=== PATIENT | male | born 1930 | race Caucasian/White ===

== ENCOUNTER 2018-10-08 13:12 | Observation (INO) ==
[2018-10-08] MEDS ORDERED: 0.9 % Sodium Chloride 1,000 ML ONE (13:17)
[2018-10-08] MEDS ORDERED: *HR* Dextrose 50 % in Water (Vial) 50 ML VIAL ONE ×2 (13:18→20:06)
--- NOTE | 2018-10-08 13:31 | Emergency Department Note ---
Disposition Clinical Impression: Atrial fibrillation with RVR, Hypoglycemia, Elevated troponin Disposition: Admitted As Inpatient General Adult HPI - General Chief complaint: ED Weakness Stated complaint: lethargic Time Seen by Provider: 10/08/18 13:12 Source: family, EMS Mode of arrival: EMS Limitations: altered mental status Nursing Notes Reviewed: Yes Vital Signs Reviewed: Yes - History of Present Illness HPI Narrative: Patient was the doctor's office when out to his car reportedly collapsed onto his knees. He is very weak squad was called her blood sugar was found to be 50. The squad was apparently called last night for low blood sugar and he refused to come in. Here in the emergency department the patient's blood sugar is 29 Onset (ago): Just [employer] Location: other Radiation: distal (Generalized) Pain Scale: 0 Consistency: constant Improves with: nothing Worsens with: nothing Associated symptoms: Reports: denies other symptoms - Related Data Previous Rx's Medication Instructions Recorded Sulfamethoxazole/Trimeth DS 1 each PO BID #10 tablet 10/01/18 [Bactrim DS] Allergies Allergy/AdvReac Type Severity Reaction Status Date / Time No Known Allergies Allergy Verified 10/01/18 20:47 All systems ED: reviewed and negative except as stated. Review of Systems: As Per HPI Constitutional: Denies: fever, chills, weakness, weight change Eyes: Denies: eye pain, eye discharge, vision change ENT ED: Denies: ear pain, throat pain, dental pain, hearing loss, epistaxis, congestion, dysphagia Cardiovascular: Denies: chest pain, palpitations, dyspnea on exertion, edema, syncope Respiratory: Denies: cough, dyspnea, wheezes, hemoptysis, stridor Gastrointestinal: Denies: abdominal pain, nausea, vomiting, diarrhea, constipation, hematemesis, melena, hematochezia Genitourinary: Denies: urgency, dysuria, frequency, hematuria Musculoskeletal: Denies: back pain, neck pain, arthralgia, myalgia Integumentary: Denies: rash, abrasion, lesions Neurological: Denies: headache, weakness, numbness, paresthesias, confusion, abnormal gait, vertigo Psychiatric: Denies: anxiety, depression, suicidal thoughts, homicidal thoughts, auditory hallucinations, visual hallucinations Endocrine: Denies: fatigue Hematological/Lymphatic: Denies: easy bleeding, easy bruising Allergic/Immunologic: Denies: facial swelling, urticaria Past Medical History - Past Medical History Attestation: Yes The following information was validated with the patient. Source: patient, nursing notes reviewed Medical history: Reports: atrial fibrillation, coronary artery disease, diabetes, hyperlipidemia, hypertension Surgical history: Reports: angioplasty/stent Psychiatric history: Reports: no psych history - Social History Smoking Status: Never smoker Smokeless Tobacco Status: No Alcohol use: Reports: none Drug use: Reports: none Physical Exam - General Limitations: altered mental status General appearance: lethargic - Head Head exam: atraumatic, normocephalic, normal inspection - Eye Eye exam: Present: normal appearance, PERRL, EOMI - ENT ENT exam: normal exam, normal oropharynx, mucous membranes moist - Neck Neck exam: Present: normal inspection, full ROM, trachea midline - Chest Chest inspection: Present: normal inspection, symmetric chest wall rise - Respiratory Respiratory exam: Present: normal lung sounds bilaterally - Cardiovascular Cardiovascular exam: Present: tachycardia, irregular rhythm, normal heart sounds - Abdominal Exam Abdominal exam: Present: soft, Non-Tender. Absent: tenderness, distention, guarding, rebound, rigidity - Extremities Exam Extremities exam: Present: normal inspection, full ROM. Absent: tenderness, pedal edema - Back Exam Back exam: Present: normal inspection, full ROM. Absent: tenderness - Neurological Exam Neurological exam: Present: other (Initially lethargic. After an amp of D50 patient is awake alert and oriented) - Psychiatric Psychiatric exam: Present: normal affect, normal mood - Skin Skin exam: Present: warm, dry, intact, normal color Course Vital Signs Temperature 99.3 F 10/08/18 13:13 Pulse Rate 124 10/08/18 13:13 Respiratory Rate 24 10/08/18 13:13 Blood Pressure 137/112 10/08/18 13:13 O2 Sat by Pulse Oximetry 86 10/08/18 13:13 Temperature 99.5 F 10/08/18 16:30 Pulse Rate 110 10/08/18 17:15 Respiratory Rate 16 10/08/18 17:15 Blood Pressure 136/61 10/08/18 17:15 O2 Sat by Pulse Oximetry 98 10/08/18 17:15 Oxygen Delivery Oxygen Delivery Room Air Medical Decision Making - MDM Narrative Medical decision making narrative: I Reviewed the patient's medication list Patient had a second episode of hypoglycemia here in the ER approximately an hour after he was checked and has blood sugar of 93 and it dropped to 30 once again he was given additional amp of D50 and perked up and was admitted to the floor in the care of Dr. Ji after discussion with him. - Lab Data Lab results reviewed: Yes I reviewed the patient's lab results. Result diagrams: 10/08/18 13:52 10/08/18 13:52 Lab Results 10/08/18 10/08/18 10/08/18 Range/Units 13:52 13:52 13:52 WBC 8.5 (4.3-11.1) K/mcL RBC 3.78 L (4.19-5.50) M/mcL Hgb 11.6 L (12.9-16.9) g/dL Hct 34.3 L (37.5-50.1) % MCV 90.7 (83.0-100.0) fL MCH 30.7 (28.0-33.3) pg MCHC 33.8 (31.6-35.5) g/dL RDW 14.1 (11.5-14.5) % Plt Count 233 (140-400) K/mcL MPV 9.6 (9.4-12.4) fL Immature Gran % 1.3 (0-4) % Seg Neutrophils % 79.0 % Lymphocytes % 11.4 % Monocytes % 7.4 % Eosinophils % 0.8 % Basophils % 0.1 % Neutrophils # 6.7 (1.6-8.9) K/mcL Lymphocytes # 1.0 (0.6-4.6) K/mcL Monocytes # 0.6 (0.0-1.3) K/mcL Eosinophils # 0.1 (0.0-0.6) K/mcL Basophils # 0.0 (0.0-0.2) K/mcL Sodium 127 L (136-145) mEq/L Potassium 4.1 (3.5-5.1) mEq/L Chloride 92 L (98-107) mEq/L Carbon Dioxide 24 (23-29) mEq/L BUN 26 H (8-23) mg/dL Creatinine 1.38 H (0.70-1.30) mg/dL Est GFR ( Amer) 59 L (> 60) Est GFR (Non-Af Amer) 49 L (> 60) BUN/Creatinine Ratio 19 (6-26) Glucose 124 H (70-105) mg/dL Calculated Osmolality 270 L (280-300) Lactic Acid 2.7 H (0.5-2.2) mmol/L Calcium 8.3 L (8.6-10.3) mg/dL Total Bilirubin 0.4 (0.3-1.0) mg/dL AST 45 H (13-39) Units/L ALT 30 (7-52) Units/L Alkaline Phosphatase 65 (34-104) Units/L Troponin I 0.04 H* (< 0.04) ng/mL Serum Total Protein 7.2 (6.4-8.9) g/dL Albumin 3.9 (3.5-5.7) g/dL Globulin 3.3 (2.4-3.5) g/dL Albumin/Globulin Ratio 1.2 (1.1-2.2) 10/08/18 10/08/18 Range/Units 15:59 15:59 WBC (4.3-11.1) K/mcL RBC (4.19-5.50) M/mcL Hgb (12.9-16.9) g/dL Hct (37.5-50.1) % MCV (83.0-100.0) fL MCH (28.0-33.3) pg MCHC (31.6-35.5) g/dL RDW (11.5-14.5) % Plt Count (140-400) K/mcL MPV (9.4-12.4) fL Immature Gran % (0-4) % Seg Neutrophils % % Lymphocytes % % Monocytes % % Eosinophils % % Basophils % % Neutrophils # (1.6-8.9) K/mcL Lymphocytes # (0.6-4.6) K/mcL Monocytes # (0.0-1.3) K/mcL Eosinophils # (0.0-0.6) K/mcL Basophils # (0.0-0.2) K/mcL Sodium (136-145) mEq/L Potassium (3.5-5.1) mEq/L Chloride (98-107) mEq/L Carbon Dioxide (23-29) mEq/L BUN (8-23) mg/dL Creatinine (0.70-1.30) mg/dL Est GFR ( Amer) (> 60) Est GFR (Non-Af Amer) (> 60) BUN/Creatinine Ratio (6-26) Glucose (70-105) mg/dL Calculated Osmolality (280-300) Lactic Acid 2.6 H (0.5-2.2) mmol/L Calcium (8.6-10.3) mg/dL Total Bilirubin (0.3-1.0) mg/dL AST (13-39) Units/L ALT (7-52) Units/L Alkaline Phosphatase (34-104) Units/L Troponin I 0.03 (< 0.04) ng/mL Serum Total Protein (6.4-8.9) g/dL Albumin (3.5-5.7) g/dL Globulin (2.4-3.5) g/dL Albumin/Globulin Ratio (1.1-2.2) - Radiology Data Radiology results reviewed: Yes I reviewed the patient's radiology results. - EKG Data EKG #2 EKG attestation: Yes I reviewed and interpreted this EKG. EKG results narrative: EKG shows A. fib with RVR with rate of 127 bpm. R -R intervals 472 ms samaritan 88 ms. 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 Possible left ventricular hypertrophy. No acute elevation of the ST segments is noted EKG #2 shows atrial fibrillation with controlled rate of 98 bpm R R interval 112 ms QRS duration 89 ms QT interval 308 ms QTC 394 ms R axis -[address] elevation Critical Care Time Critical Care Time: Yes Attestation: 60 minutes of care time is assessed the patient was high probability of clinically life-threatening significant deterioration patient condition which required urgent intervention including IV glucose for hypoglycemia and IV Cardizem for tachycardia
[2018-10-08] MEDS ORDERED: 0.9 % Sodium Chloride 1,000 ML IVC SCH (13:45)
[2018-10-08 14:03] LABS: Basophils % 0.1 %; Eosinophils # 0.1 K/mcL (0.0-0.6); Eosinophils % 0.8 %; Hematocrit 34.3 % (37.5-50.1); Hemoglobin 11.6 g/dL (12.9-16.9); Immature Granulocytes % 1.3 % (0-4); Lymphocytes % 11.4 %; Mean Corpuscular HGB Conc 33.8 g/dL (31.6-35.5); Mean Corpuscular Hemoglobin 30.7 pg (28.0-33.3); Mean Corpuscular Volume 90.7 fL (83.0-100.0); Mean Platelet Volume 9.6 fL (9.4-12.4); Monocytes # 0.6 K/mcL (0.0-1.3); Monocytes % 7.4 %; Neutrophils # 6.7 K/mcL (1.6-8.9); Platelet Count 233 K/mcL (140-400); Red Blood Count 3.78 M/mcL (4.19-5.50); Red Cell Distribution Width 14.1 % (11.5-14.5)
[2018-10-08 14:27] LABS: Albumin 3.9 g/dL (3.5-5.7); Albumin/Globulin Ratio 1.2 (1.1-2.2); Bilirubin,Total 0.4 mg/dL (0.3-1.0); Calcium 8.3 mg/dL (8.6-10.3); Globulin 3.3 g/dL (2.4-3.5); Potassium 4.1 mEq/L (3.5-5.1); Total Protein 7.2 g/dL (6.4-8.9); Troponin I 0.04 ng/mL (< 0.04)
[2018-10-08] MEDS ORDERED: *HR* Dextrose 50 % in Water (Syg) 50 ML SYRINGE IVP ONE (17:09)
[2018-10-08] MEDS ORDERED: Naloxone 0.4 MG/ML INJ IVP PRN (17:59)
[2018-10-08] MEDS ORDERED: D5% in 0.9% NACL 1,000 ML IVC SCH (18:00)
[2018-10-08] MEDS: D5% in 0.9% NACL 1,000 ML IVC SCH (18:45)
[2018-10-08] MEDS ORDERED: *HR* Dextrose 50 % in Water (Vial) 50 ML VIAL IVP ONE (20:01)
[2018-10-08] MEDS: Sulfamethoxazole/Trimeth DS 1 EACH TABLET PO SCH (20:18)
[2018-10-08 23:26] LABS: Bilirubin,Urine Negative (Negative); Blood,Urine Negative (Negative); Clarity,Urine Clear (Clear); Color,Urine Yellow (Yellow); Glucose,Urine (UA) 100 mg/dL (Normal); Ketones,Urine Negative (Negative); Leukocyte Esterase,Urine Negative (Negative); Nitrite,Urine Negative (Negative); Protein,Urine 30 mg/dL (Neg-Trace); Specific Gravity,Urine 1.015 (1.010-1.025); Urobilinogen,Urine Normal (Normal)
[2018-10-08 23:39] LABS: Mucus,Urine Few (Few)
[2018-10-09] MEDS ORDERED: D5% in Water 1,000 ML IVC PRN (01:43)
[2018-10-09] MEDS ORDERED: Dextrose Gel 15 GM/37.5 ML TUBE PO PRN ×2 (01:43)
[2018-10-09] MEDS ORDERED: *HR* Dextrose 50 % in Water (Syg) 50 ML SYRINGE IVP PRN (01:43)
[2018-10-09] MEDS ORDERED: *HR* Dextrose 50 % in Water (Vial) 50 ML VIAL IVP PRN (02:00)
[2018-10-09] MEDS: D10% in Water 500 ML IVC SCH ×3 (02:07→14:27)
[2018-10-09] MEDS: D5% in 0.9% NACL 1,000 ML IVC SCH (03:45)
[2018-10-09 05:18] LABS: Basophils % 0.1 %; Eosinophils # 0.1 K/mcL (0.0-0.6); Eosinophils % 1.5 %; Hemoglobin 11.1 g/dL (12.9-16.9); Immature Granulocytes % 0.5 % (0-4); Lymphocytes # 1.2 K/mcL (0.6-4.6); Lymphocytes % 14.3 %; Mean Corpuscular HGB Conc 33.6 g/dL (31.6-35.5); Mean Corpuscular Hemoglobin 30.4 pg (28.0-33.3); Mean Corpuscular Volume 90.4 fL (83.0-100.0); Mean Platelet Volume 9.9 fL (9.4-12.4); Monocytes # 0.3 K/mcL (0.0-1.3); Monocytes % 3.7 %; Neutrophils # 6.4 K/mcL (1.6-8.9); Platelet Count 217 K/mcL (140-400); Red Blood Count 3.65 M/mcL (4.19-5.50); Segmented Neutrophils % 79.9 %
[2018-10-09 05:45] LABS: Alanine Aminotransferase 31 Units/L (7-52); Albumin 3.6 g/dL (3.5-5.7); Albumin/Globulin Ratio 1.2 (1.1-2.2); Alkaline Phosphatase 56 Units/L (34-104); Aspartate Amino Transferase 46 Units/L (13-39); BUN/Creatinine Ratio 16 (6-26); Bilirubin,Total 0.6 mg/dL (0.3-1.0); Blood Urea Nitrogen 18 mg/dL (8-23); Calcium 8.1 mg/dL (8.6-10.3); Carbon Dioxide 24 mEq/L (23-29); Chloride 96 mEq/L (98-107); Globulin 2.9 g/dL (2.4-3.5); Glucose 74 mg/dL (70-105); Osmolality,Calculated 269 (280-300); Potassium 3.8 mEq/L (3.5-5.1); Sodium 129 mEq/L (136-145); Total Protein 6.5 g/dL (6.4-8.9); eGFR For Non-African Americans > 60 (> 60)
[2018-10-09 05:46] LABS: BUN/Creatinine Ratio 16 (6-26); Blood Urea Nitrogen 18 mg/dL (8-23); Calcium 8.1 mg/dL (8.6-10.3); Carbon Dioxide 23 mEq/L (23-29); Chloride 97 mEq/L (98-107); Glucose 76 mg/dL (70-105); Osmolality,Calculated 269 (280-300); Potassium 3.9 mEq/L (3.5-5.1); Sodium 129 mEq/L (136-145); eGFR For Non-African Americans > 60 (> 60)
[2018-10-09 08:49] LABS: % Iron Saturation 9 % (20-55); Iron 31 mcg/dL (65-175); Transferrin 243 mg/dL (203-362)
[2018-10-09 09:06] LABS: Ferritin 306 ng/mL (20-250)
[2018-10-09 09:14] LABS: Folate > 22.3 ng/mL (3.0-16.0); Vitamin B12 107 pg/mL (250-1100)
[2018-10-09] MEDS: Sulfamethoxazole/Trimeth DS 1 EACH TABLET PO SCH (09:49)
[2018-10-09] MEDS ORDERED: Cyanocobalamin (B-12) 1,000 MCG/ML VIAL IM ONE (11:38)
--- NOTE | 2018-10-09 11:48 | Internal Med History&Physical ---
Date of Encounter: 10/09/18 Time of Encounter: 11:05 Assessment and Plan (1) Atrial fibrillation with RVR Current visit: Yes Status: Acute Chronic AF. He was given a dose of Cardizem in emergency room. Lanoxin level will be checked. IV fluids were ordered. (2) Acute kidney injury Current visit: Yes Status: Acute BUN and creatinine elevated at 26 and 1.3 respectively in emergency room. These are now decreased 18 and 1.11 respectively. Continue to monitor. (3) Anemia, B12 deficiency Current visit: Yes Status: Acute B12 level low at 107. He will be given B12 injection and start oral B12 supplement. Qualifiers: Vitamin B12 deficiency anemia type: unspecified B12 deficiency Qualified Code(s): D51.9 - Vitamin B12 deficiency anemia, unspecified (4) Iron deficiency anemia Current visit: Yes Status: Acute Suspect due in part to aspirin use. Oral ferrous sulfate with ascorbic acid will be started. Qualifiers: Iron deficiency anemia type: unspecified iron deficiency Qualified Code(s): D50.9 - Iron deficiency anemia, unspecified (5) Drug rash Current visit: Yes Status: Acute Septra will be discontinued. He will be given Benadryl and prednisone. (6) Dementia Current visit: Yes Status: Acute MMSE will be done. Qualifiers: Dementia type: unspecified type Dementia behavioral disturbance: without behavioral disturbance Qualified Code(s): F03.90 - Unspecified dementia without behavioral disturbance (7) Weakness Current visit: Yes Status: Acute He will have physical therapy and occupational therapy evaluation. (8) Hypoglycemia Current visit: Yes Status: Acute Family reports glimepiride was discontinued yesterday. Hypoglycemia has improved with IV dextrose infusion. Continue to monitor glucose. Hemoglobin A1c has been ordered. Internal Medicine - H&P: HPI Chief complaint: AF with RVR, weakness, hypoglycemia Admitted From: Emergency Dept Plans for Post Hospital Care: Home History of present illness: Mr. Shannon is a 88 year old male who came to emergency room after leaving an office visit with his PCP because he became extremely weak. Family required EMS personnel to help load him into the car. He was brought to emergency room and evaluated and found to have AF with RVR and hypoglycemia. He was admitted to [facility] floor for ongoing care needs. He has chronic atrial fibrillation. He uses aspirin for CVA prophylaxis instead of OAC. He has history of hypertension. There is no known OK DVT or pulmonary embolus. An echocardiogram May 2014 showed LVEF of 65%. There was mild diastolic dysfunction reported. Estimated RVSP was 45 mmHg. There was mild to moderate pulmonary regurgitation, moderate aortic valve calcification, and trace aortic regurgitation. Endocrine history is significant for being diagnosed with DM 2 approximately age 64. He has hyperlipidemia and hypothyroidism. His oral food intake has decreased the past few days. Family attributes this to use of an antibiotic given him for pain/infection in his right knee. Past Med Surg Social Fam HX - Past Medical History Medical history: atrial fibrillation, coronary artery disease, diabetes, hyperlipidemia, hypertension Psychiatric history: no psych history - Past Surgical History Surgical History: angioplasty/stent Additional surgical history: coronary stent - Social History Smoking Status: Never smoker Smokeless Tobacco Status: No Alcohol use: none Drug use: none Internal Medicine - H&P: Meds Sulfamethoxazole/Trimeth DS [Bactrim DS] 1 each PO BID #10 tablet 10/01/18 [Rx] Allergy/AdvReac Type Severity Reaction Status Date / Time No Known Allergies Allergy Verified 10/01/18 20:47 All Systems PM: A 10-system review of systems was performed and is negative for pertinent findings except as documented above in the HPI. Review of systems: Review of systems is obtained from family since patient has significant dementia. Gen.: His weight has increased from 74.843 kg October 2014 to 83.915 kg at present. Cardiovascular: As per history of present illness Respiratory: He smoked for approximately 4 years in early adulthood but has no known chronic lung disease and does not use home oxygen. GI: There is no known disorders of liver gallbladder or exocrine pancreas : He has BPH but no other kidney bladder prostate disorders Neurologic: There is no history of large distribution strokes or seizures. He has dementia with MMSE May 2014 showing a score of 22/30. Endocrine: As per history of present illness Hematology/oncology: He has anemia. There is no known internal malignancies or other blood disorders. Psychiatric: No history of anxiety depression or other mental health issues [place] skeletal: He developed pain in his right knee approximately 1 week ago. He was evaluated at a local urgent care and directed to [facility] emergency room. He was placed on antibiotics for diagnosis of cellulitis. Knee x-ray showed soft tissue swelling and small joint effusion without acute osseous abnormality. No joint aspiration was attempted. He saw an orthopedist the following day who continued the antibiotics. Another follow-up appointment on 10/06/2018 with the orthopedist resulted in no additional workup or treatment. He has no significant DJD, gout, or other bone joint or muscle disorders. - Constitutional Vitals: Temp Pulse Resp BP Pulse Ox 98.0 F 111 28 122/62 95 10/09/18 10:23 10/09/18 10:23 10/09/18 10:23 10/09/18 10:23 10/09/18 10:23 Exam: Gen.: He is a well-developed well-nourished male lying in bed who appears in no acute distress HEENT: Head is atraumatic and normocephalic. Eyes: EOMI. There is no scleral icterus. Mouth: Mucosa is moist. Neck: Supple and nontender. There is no thyromegaly or adenopathy noted. Heart: Irregularly irregular with rate approximately 112/m. Lungs: No wheezes or crackles are heard. Abdomen: Soft and nontender. No masses or guarding are noted. Extremities: There is no cyanosis edema or clubbing noted. Dorsalis pedis and posttibial pulses are trace to 1+ palpable bilaterally. Neurologic: Mental status: He is able to answer a few questions but is not conversational. Cranial nerves: Smile is symmetric. Forehead wrinkles bilaterally. Tongue protrudes midline. EOMI. Motor: There is no pronator drift. Cerebellar: Finger to nose is intact bilaterally. Skin: Warm and dry. He has diffuse macular rash involving large portion of his upper legs, torso, and arms consistent with allergic drug reaction. Internal Med - H&P Results - Labs CBC & Chem 7: 10/09/18 04:33 10/09/18 04:33 Labs: Short CBC 10/08/18 10/09/18 Range/Units 13:52 04:33 WBC 8.5 8.0 (4.3-11.1) K/mcL Hgb 11.6 L 11.1 L (12.9-16.9) g/dL Hct 34.3 L 33.0 L (37.5-50.1) % Plt Count 233 217 (140-400) K/mcL Neutrophils # 6.7 6.4 (1.6-8.9) K/mcL BMP 10/08/18 10/09/1810/09/19 13:52 04:33 04:33 Sodium 127 L 129 L 129 L Potassium 4.1 3.9 3.8 Chloride 92 L 97 L 96 L Carbon Dioxide 24 23 24 BUN 26 H 18 18 Creatinine 1.38 H 1.12 1.11 Glucose 124 H 76 74 Calcium 8.3 L 8.1 L 8.1 L Cardiac Enzymes 10/08/18 10/08/18 10/08/18 Range/Units 13:52 15:59 22:02 Troponin I 0.04 H* 0.03 0.04 H* (< 0.04) ng/mL 10/09/18 Range/Units 04:33 Troponin I 0.04 H* (< 0.04) ng/mL Liver Function 10/08/18 10/09/18 Range/Units 13:52 04:33 Total Bilirubin 0.4 0.6 (0.3-1.0) mg/dL AST 45 H 46 H (13-39) Units/L ALT 30 31 (7-52) Units/L Alkaline Phosphatase 65 56 (34-104) Units/L Albumin 3.9 3.6 (3.5-5.7) g/dL Urine 10/08/18 Range/Units 23:14 Urine Color Yellow (Yellow) Urine Clarity Clear (Clear) Urine pH 5.0 (5.0-8.0) pH Units Ur Specific [place] 1.015 (1.010-1.025) Urine Protein 30 H (Neg-Trace) mg/dL Urine Glucose (UA) 100 H (Normal) mg/dL - Impressions ITS Impressions Chest X-Ray 10/08/18 13:35 IMPRESSION: Suboptimal inspiration-no definite acute pulmonary finding. Stable mild cardiomegaly. D/ / Ignacio Phillips MD / Ignacio Phillips MD Interpreting Provider: Ignacio Phillips MD
[2018-10-09] MEDS: predniSONE 20 MG TABLET PO SCH ×2 (14:18→17:34)
[2018-10-09] MEDS ORDERED: Acetaminophen 325 MG TABLET PO PRN (14:53)
[2018-10-09] MEDS ORDERED: Acetaminophen 325 MG TABLET PO SCH (16:00)
[2018-10-09 17:39] LABS: Estimated Average Glucose 166 mg/dl; Hemoglobin A1C 7.4 %
--- NOTE | 2018-10-09 20:29 | Electrocardiograph Report ---
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
--- NOTE | 2018-10-09 20:38 | Electrocardiograph Report ---
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
[2018-10-10 06:07] LABS: Basophils % 0.3 %; Eosinophils % 0.1 %; Hemoglobin 11.6 g/dL (12.9-16.9); Immature Granulocytes % 0.4 % (0-4); Lymphocytes # 1.2 K/mcL (0.6-4.6); Lymphocytes % 16.8 %; Mean Corpuscular HGB Conc 33.1 g/dL (31.6-35.5); Mean Corpuscular Hemoglobin 29.8 pg (28.0-33.3); Mean Platelet Volume 10.5 fL (9.4-12.4); Monocytes # 0.2 K/mcL (0.0-1.3); Monocytes % 2.8 %; Neutrophils # 5.7 K/mcL (1.6-8.9); Platelet Count 213 K/mcL (140-400); Red Blood Count 3.89 M/mcL (4.19-5.50); Red Cell Distribution Width 14.2 % (11.5-14.5); Segmented Neutrophils % 79.6 %
[2018-10-10] MEDS ORDERED: Ascorbic Acid 500 MG TABLET PO SCH (06:30)
[2018-10-10 06:37] LABS: BUN/Creatinine Ratio 26 (6-26); Blood Urea Nitrogen 29 mg/dL (8-23); Calcium 8.6 mg/dL (8.6-10.3); Carbon Dioxide 15 mEq/L (23-29); Chloride 99 mEq/L (98-107); Glucose 455 mg/dL (70-105); Osmolality,Calculated 294 (280-300); Potassium 4.7 mEq/L (3.5-5.1); Sodium 129 mEq/L (136-145); eGFR For Non-African Americans > 60 (> 60)
[2018-10-10 06:56] LABS: Platelet Estimate Normal (Normal)
[2018-10-10] MEDS ORDERED: *HR* Glimepiride 2 MG TABLET PO SCH (08:00)
[2018-10-10] MEDS ORDERED: Cyanocobalamin (B-12) 1,000 MCG TABLET PO SCH (09:00)
[2018-10-10] MEDS: predniSONE 20 MG TABLET PO SCH (09:32)
[2018-10-10 10:36] VITALS: BP 132/85
[2018-10-10] MEDS ORDERED: Insulin LISPRO 300 UNITS/3 ML VIAL SQ ONE (11:58)
--- NOTE | 2018-10-10 12:06 | Discharge Summary ---
Orders not resulted at time of discharge: Pending orders 10/09/18 14:59 Culture,Blood [BC] Stat Date of Encounter: 10/10/18 Time of Encounter: 11:20 - Discharge Diagnosis (1) Atrial fibrillation with RVR Priority: Primary Status: Acute (2) Acute kidney injury Priority: Secondary Status: Resolved (3) Anemia, B12 deficiency Priority: Secondary Status: Acute Qualifiers: Vitamin B12 deficiency anemia type: unspecified B12 deficiency Qualified Code(s): D51.9 - Vitamin B12 deficiency anemia, unspecified (4) Iron deficiency anemia Priority: Secondary Status: Acute Qualifiers: Iron deficiency anemia type: unspecified iron deficiency Qualified Code(s): D50.9 - Iron deficiency anemia, unspecified (5) Drug rash Priority: Secondary Status: Acute (6) Dementia Priority: Secondary Status: Chronic Qualifiers: Dementia type: unspecified type Dementia behavioral disturbance: without behavioral disturbance Qualified Code(s): F03.90 - Unspecified dementia without behavioral disturbance (7) Weakness Priority: Secondary Status: Chronic (8) Hypoglycemia Priority: Secondary Status: Resolved Hospital course: Mr. Shannon is a 88 year old male who came to emergency room after leaving an office visit with his PCP because he became extremely weak. Family required EMS personnel to help load him into the car. He was brought to emergency room and evaluated and found to have AF with RVR and hypoglycemia. He was admitted to [facility] for ongoing care needs. Initial orders were written by the emergency room physician. I saw him on October 09 and performed a history and physical. A dose of Cardizem was given in emergency room. IV fluids were started and his ventricular response rate slowed to an acceptable level. Digoxin level returned low at 0.7. His dose will be increased to assist in RVR control. IV fluids were given and BUN and creatinine decreased to 29 and 1.10 respectively by day of discharge with estimated GFR greater than 60. Renal indices were monitored at the [facility]. Anemia testing showed iron 31, transferrin saturation 9%, transferrin 243, ferritin 306, B12 107, and folate > 22.3. He was given a B12 injection started on oral B12 supplement. He was also started on ferrous sulfate with ascorbic acid orally. Labs will be monitored at the [facility]. MMSE was done and showed a score of 8/30. PT and OT evaluations were done. Septra was started in emergency room for history of cellulitis. When I saw him on October 09 he appeared to have a drug rash which I felt was likely due to the Septra. The medication was discontinued and he was given prednisone and Benadryl. The rash was improved on October 10. This will be monitored at the [facility]. Glimepiride was held and hypoglycemia resolved. He developed hyperglycemia by day of discharge. Metformin dose will be continued and glimepiride will be given at a dose of 1 mg daily. Hemoglobin A1c returned slightly elevated 7.4%. On 10/10/2018 arrangements were complete for him to be discharged to [facility] [place] for ongoing care needs. He will follow with me there. - Time Spent with Patient Total time spent providing and/or coordinating discharge services: - Discharge Medications Prescriptions: New Ascorbic Acid [Vitamin C] 500 mg PO 0630 tablet Aspirin [Lo-Dose Aspirin EC] 81 mg PO DAILY 365 Days tablet. Cyanocobalamin (B-12) [Vitamin B12] 1,000 mcg PO DAILY tablet Digoxin [Lanoxin] 0.25 mg PO DAILY 365 Days tablet Ferrous Sulfate 325 mg PO 0630 tablet Glimepiride [Amaryl] 1 mg PO 0800 tablet Glimepiride [Amaryl] 1 mg PO DAILY 365 Days tablet Tamsulosin [Flomax] 0.4 mg PO DAILY 365 Days cap.er.24h Continue Pravastatin Sodium [Pravachol] 20 mg PO HS Vitamin B Complex [B Complex] 1 each PO DAILY metFORMIN [Glucophage] 1,000 mg PO BIDWM Finasteride [Proscar] 5 mg PO DAILY Levothyroxine Sodium [Levoxyl] 50 mcg PO Changed Tizanidine HCl [Zanaflex] 4 mg PO TID PRN #0 PRN Reason: Muscle Spasm Discontinued Sulfamethoxazole/Trimeth DS [Bactrim DS] 1 each PO BID #10 tablet Aspirin [Ecotrin] 325 mg PO HS Potassium Chloride [Klor-Con 10] 10 meq PO DAILY Digoxin [Lanoxin] 0.125 mg PO DAILY Furosemide [Lasix] 10 mg PO DAILY Glimepiride [Amaryl] 4 mg PO DAILY Home Medications: Finasteride [Proscar] 5 mg PO DAILY 10/09/18 [History] Levothyroxine Sodium [Levoxyl] 50 mcg PO 10/09/18 [History] Pravastatin Sodium [Pravachol] 20 mg PO HS 10/09/18 [History] Vitamin B Complex [B Complex] 1 each PO DAILY 10/09/18 [History] metFORMIN [Glucophage] 1,000 mg PO BIDWM 10/09/18 [History] Ascorbic Acid [Vitamin C] 500 mg PO 0630 tablet 10/10/18 [Rx] Aspirin [Lo-Dose Aspirin EC] 81 mg PO DAILY 365 Days tablet. 10/10/18 [Rx] Cyanocobalamin (B-12) [Vitamin B12] 1,000 mcg PO DAILY tablet 10/10/18 [Rx] Digoxin [Lanoxin] 0.25 mg PO DAILY 365 Days tablet 10/10/18 [Rx] Ferrous Sulfate 325 mg PO 0630 tablet 10/10/18 [Rx] Glimepiride [Amaryl] 1 mg PO 0800 tablet 10/10/18 [Rx] Glimepiride [Amaryl] 1 mg PO DAILY 365 Days tablet 10/10/18 [Rx] Tamsulosin [Flomax] 0.4 mg PO DAILY 365 Days cap.er.24h 10/10/18 [Rx] Tizanidine HCl [Zanaflex] 4 mg PO TID PRN #0 10/10/18 [Rx] Allergies/Adverse Reactions: Allergy/AdvReac Type Severity Reaction Status Date / Time No Known Allergies Allergy Verified 10/01/18 20:47 Date of admission: 10/09/18 11:41 Primary care physician: Guzman Rivera MD Consults: 10/09/18 11:39 Consult to Occupational Therapy [CONS] Routine Comment: Evaluate, develop and implement POC Reason for Consult: Weakness Does patient have active BEDREST order?: No Is patient medically & hemodynamically stable?: Yes Patient assessed for mobility or mobilized this visit?: Yes Consult to Physical Therapy [CONS] Routine Comment: Evaluate, develop and implement POC Reason for Consult: Weakness Does patient have active BEDREST order?: No Is patient medically & hemodynamically stable?: Yes Patient assessed for mobility or mobilized this visit?: Yes - Constitutional Vitals: Temp Pulse Resp BP Pulse Ox 96.9 F L 98 20 132/85 97 10/10/18 10:31 10/10/18 10:31 10/10/18 10:31 10/10/18 10:31 10/10/18 10:31 - Patient Status Disposition: Transfer SNF - Discharge Instructions - Diet and Activity Activity: as per physical therapy Diet: diabetic diet
== END 2018-10-10 16:10 ==
LOC: EMEROOPIK 13:12 → INPPIK 13:12
PROVIDERS: ADMIT Internal Medicine; ATTEND Internal Medicine